=== PATIENT | female | born 1975 | race Asian ===

== ENCOUNTER 2020-01-21 20:08 | Emergency (ER) | payer OTHER ==
[~2020-01-21] VITALS: Ht 162.6 cm; Wt 86.4 kg
[2020-01-21] MEDS ORDERED: VITA-328 PO (20:17)
[2020-01-21] MEDS ORDERED: VIT1CAPS28 PO (20:17)
[2020-01-21] MEDS ORDERED: FENO160T41 PO (20:17)
[2020-01-21] MEDS ORDERED: AMLO-258 PO (20:17)
[2020-01-21] MEDS ORDERED: ATOR40TA28 PO (20:17)
[2020-01-21] MEDS ORDERED: VITA400C73 PO (20:17)
[2020-01-21] MEDS ORDERED: GLIM4TAB36 PO (20:17)
[2020-01-21] MEDS ORDERED: DEXTROSE 50%-WATER 25 GM/50 ML SYRINGE IVP ONE (20:30)
[2020-01-21 20:44] LABS: COVID AG,FIA SOURCE NASOPHARYNGEAL
[2020-01-21] MEDS ORDERED: SODIUM CHLORIDE 0.9% 1,000 ML IV ONE (20:45)
[2020-01-21 21:08] LABS: BASOPHILS % (AUTO) 0.5 % (0.0-2.0); EOSINOPHILS % (AUTO) 0.4 % (1.0-6.0); HEMATOCRIT 27.1 % (36-46); HEMOGLOBIN 8.7 g/dL (12.0-16.0); LYMPHOCYTES # (AUTO) 1.2 K/uL (1.0-4.8); LYMPHOCYTES % (AUTO) 7.8 % (22.0-44.0); MEAN CORPUSCULAR HGB CONC 32.1 G/dL (31.0-37.0); MEAN CORPUSCULAR VOLUME 72 fL (80-100); MONOCYTES # (AUTO) 0.8 K/uL (0.1-1.0); MONOCYTES % (AUTO) 5.5 % (2.0-9.0); NEUTROPHILS # (AUTO) 12.8 K/uL (1.8-7.7); PLATELET COUNT (AUTO) 749 K/uL (150-450); RED BLOOD CELL COUNT(AUTO) 3.78 MIL/uL (4.00-5.20); RED CELL DISTRIBUTION WIDTH 17.1 % (11.5-14.5)
[2020-01-21 21:11] LABS: INFLUENZA TYPE A NEGATIVE FOR TYPE A (NEGATIVE); INFLUENZA TYPE B NEGATIVE FOR TYPE B (NEGATIVE)
[2020-01-21 21:18] LABS: ANION GAP 12 mmol/L (8-16); CALCIUM, TOTAL 8.7 mg/dL (8.8-10.5); CARBON DIOXIDE 22 mmol/L (22-29); CHLORIDE 101 mmol/L (98-107); CREATININE 1.81 mg/dL (0.60-1.30); GLOMERULAR FILTR. RATE CALC 31 mL/min (>60); GLUCOSE,RANDOM 192 mg/dL (70-110); POTASSIUM 4.1 mmol/L (3.5-5.1); SODIUM SERUM 135 mmol/L (136-145); UREA NITROGEN, BLOOD 29 mg/dL (7-18)
[2020-01-21 21:20] LABS: PROTHROMBIN TIME 10.2 SEC (9.4-11.6)
[2020-01-21 21:21] LABS: NEUTROPHILS % (AUTO) 85.8 % (40.0-70.0)
[2020-01-21 21:43] LABS: TROPONIN I < 0.02 ng/mL (0.00-0.05)
[2020-01-21 21:44] LABS: ALANINE AMINOTRANSFERASE 17 U/L (12-78); ALBUMIN 3.3 g/dL (3.4-5.0); ALKALINE PHOSPHATASE 38 U/L (46-116); ASPARTATE AMINOTRANSFERASE 16 U/L (15-37); BILIRUBIN,TOTAL 0.1 mg/dL (0.1-1.0); CREATINE KINASE, TOTAL ONLY 214 U/L (26-192); HCG,QUANTITATIVE < 1 mIU/mL (0-6); LIPASE 249 U/L (73-393); TOTAL PROTEIN, SERUM 8.1 g/dL (6.4-8.2)
[2020-01-21 21:52] LABS: AMMONIA < 10 umol/L (11-32)
[2020-01-21 21:56] LABS: ACETAMINOPHEN < 2 mcg/mL (10-30)
[2020-01-21 22:06] LABS: SALICYLATE 1.2 mg/dL (2.8-20.0)
[2020-01-21 22:51] VITALS: BP 148/88
== END 2020-01-21 22:52 | disposition home or self-care (01) ==
LOC: EMS 20:08
DX: E86.0 Dehydration (principal); B34.9 Viral infection, unspecified; I10 Essential (primary) hypertension; E11.9 Type 2 diabetes mellitus without complications; Z20.828 Contact with and (suspected) exposure to other viral communicable diseases
CPT/HCPCS: 36415; 71045; 80053; 82140; 82550; 82962; 83690; 83735; 84484; 84702; 85025; 85610; 87040; 87426; 87804; 93005; 96361; 96374; 99285; G0480; 82948; G0481

== ENCOUNTER 2020-08-12 17:54 | Emergency (ER) | payer OTHER ==
[~2020-08-12] VITALS: Ht 162.6 cm; Wt 75.9 kg
[~2020-08-12 17:54] MED LIST: AMLO-258 PO; ATOR40TA28 PO; FENO160T14 PO; GLIM4TAB36 PO; VIT1CAPS28 PO; VITA-328 PO; VITA400C73 PO
[2020-08-12 19:10] VITALS: BP 132/89
== END 2020-08-12 19:10 | disposition home or self-care (01) ==
LOC: EMS 17:55
DX: R06.02 Shortness of breath (principal); M79.10 Myalgia, unspecified site; R05 Cough; E11.9 Type 2 diabetes mellitus without complications; I10 Essential (primary) hypertension
CPT/HCPCS: 71045; 82962; 99283

== ENCOUNTER 2020-08-25 18:47 | Emergency (ER) | payer OTHER ==
[~2020-08-25] VITALS: Ht 165.1 cm; Wt 72.7 kg
[2020-08-25] MEDS ORDERED: LOSA50TA37 PO (18:57)
[2020-08-25] MEDS ORDERED: ALOG12.5 PO (18:57)
[2020-08-25] MEDS ORDERED: FERR-72 PO (20:26)
[2020-08-25] MEDS ORDERED: ACETAMINOPHEN 500 MG TABLET PO ONE (20:30)
[2020-08-25] MEDS ORDERED: MECLIZINE HCL 25 MG TABLET PO ONE (20:30)
[2020-08-25] MEDS ORDERED: ONDANSETRON HCL 4 MG/2 ML VIAL IVP ONE (20:30)
[2020-08-25] MEDS ORDERED: SODIUM CHLORIDE 0.9% 1,000 ML IV ONE (20:30)
[2020-08-25 20:31] LABS: BASOPHILS % (AUTO) 0.9 % (0.0-2.0); EOSINOPHILS % (AUTO) 1.7 % (1.0-6.0); HEMATOCRIT 31.6 % (36-46); HEMOGLOBIN 10.3 g/dL (12.0-16.0); LYMPHOCYTES % (AUTO) 21.6 % (22.0-44.0); MEAN CORPUSCULAR HEMOGLOBIN 29.5 pg (26.0-34.0); MEAN CORPUSCULAR HGB CONC 32.8 G/dL (31.0-37.0); MEAN CORPUSCULAR VOLUME 90 fL (80-100); MONOCYTES # (AUTO) 0.9 K/uL (0.1-1.0); MONOCYTES % (AUTO) 9.4 % (2.0-9.0); NEUTROPHILS # (AUTO) 6.1 K/uL (1.8-7.7); NEUTROPHILS % (AUTO) 66.4 % (40.0-70.0); PLATELET COUNT (AUTO) 670 K/uL (150-450); RED BLOOD CELL COUNT(AUTO) 3.51 MIL/uL (4.00-5.20); RED CELL DISTRIBUTION WIDTH 13.2 % (11.5-14.5)
[2020-08-25 20:35] LABS: ANION GAP 13 mmol/L (8-16); CALCIUM, TOTAL 8.4 mg/dL (8.8-10.5); CARBON DIOXIDE 22 mmol/L (22-29); CHLORIDE 95 mmol/L (98-107); CREATININE 1.64 mg/dL (0.60-1.30); GLOMERULAR FILTR. RATE CALC 34 mL/min (>60); GLUCOSE,RANDOM 107 mg/dL (70-110); POTASSIUM 3.5 mmol/L (3.5-5.1); SODIUM SERUM 130 mmol/L (136-145); UREA NITROGEN, BLOOD 24 mg/dL (7-18)
[2020-08-25 20:46] LABS: ALANINE AMINOTRANSFERASE 40 U/L (12-78); ALBUMIN 3.4 g/dL (3.4-5.0); ALKALINE PHOSPHATASE 29 U/L (46-116); ASPARTATE AMINOTRANSFERASE 32 U/L (15-37); BILIRUBIN,TOTAL 0.5 mg/dL (0.1-1.0); HCG,QUANTITATIVE < 1 mIU/mL (0-6); TOTAL PROTEIN, SERUM 7.2 g/dL (6.4-8.2)
[2020-08-25 21:55] VITALS: BP 139/77
== END 2020-08-25 22:34 | disposition home or self-care (01) ==
LOC: EMS 18:49
DX: E86.0 Dehydration (principal); R55 Syncope and collapse; R42 Dizziness and giddiness; E11.9 Type 2 diabetes mellitus without complications; I10 Essential (primary) hypertension; Z86.2 Personal history of diseases of the blood and blood-forming organs and certain disorders involving the immune mechanism
CPT/HCPCS: 80053; 82962; 84484; 84702; 85025; 93005; 96361; 96374; 99284; G0480; J2405; J7030